=== PATIENT | male | born 1995 ===

== ENCOUNTER 2024-03-18 08:37 | Outpatient (REF) | payer OTHER, SELFPAY ==
--- NOTE | ~2024-03-18 | US_ITS ---
EXAMINATION: US SCROTUM CLINICAL INFORMATION: Chronic testicular pain; questionable mass posterior to testis. COMPARISON: None available. TECHNIQUE: A sonogram of the scrotum was performed assessing huntley-scale appearance and color Doppler flow. Spectral Doppler analysis of the arterial and venous flow were performed in the testes bilaterally. FINDINGS: Within the posterior scrotum, in the region of the palpable mass, there is a well-defined, small complex cyst with increased through transmission and internal echoes measuring 2.0 x 1.3 x 1.7 mm. RIGHT: Right testicle measures 4.9 x 2.3 x 3.1 cm, volume 18.2 mL. No focal testicular parenchymal lesions are visualized. Spectral Doppler analysis of the arterial and venous flow is normal in the right testis. Right epididymal head is normal in size. No right hydrocele or varicocele is seen. Right epididymal Doppler flow is normal. LEFT: Left testicle measures 5.1 x 2.3 x 3.2 cm, volume 19.4 mL. No focal testicular parenchymal lesions are visualized. Spectral Doppler analysis of the arterial and venous flow is normal in the left testis. Left epididymal head is normal in size. No left hydrocele is seen. A small left varicocele is seen. Left epididymal Doppler flow is normal. US/US scrotum IMPRESSION: 1. Small left varicocele. 2. Tiny complex cyst posterior scrotum. 3. The testes appear normal and there is no evidence of malignancy.
== END 2024-03-18 08:38 | disposition home or self-care (01) ==
LOC: HO.UMASIMG 08:37
PROVIDERS: Visit Provider Physician Assistant Medical
DX: N50.811 Right testicular pain (principal)
CPT/HCPCS: 76870